=== PATIENT | male | born 1960 | race Caucasian/White ===

== ENCOUNTER 2017-07-09 14:52 | Outpatient (CLI) | payer BC ==
--- NOTE | 2017-07-09 17:50 | RAD ---
EXAM: BARIUM SWALLOW ESOPHAGRAM 07/09/17 HISTORY: Dysphagia. Patient has undergone distal esophageal dilatation. COMPARISON: None. EXPOSURE: 1.8 minutes. 113.77 mGy. FINDINGS: Initial maintenance carpenter chest radiograph demonstrates left sided transvenous pacemaker with lead position over the right atrium and right ventricle. There is atherosclerosis of the aorta. Normal cardiac silhoue tte. The pulmonary vessels and hilum are normal. Costophrenic angles are clear. No masses or consoli dation. No pneumothorax or osseous abnormality. The cervical esophagus has an overall normal course and caliber. The proximal and mid distal thoraci c esophagus also has a normal course and caliber. There is short segment moderate stenosis involving the distal thoracic esophagus just proximal to the GE junction. There is a small focal outpouching of contrast posteriorly just before the area of narrowing. 13 mm tablet does demonstrate delay in passage at the level of narrowing. Single postprocedure image demonstrates contrast in the stomach. Barium tablet is no longer seen. 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 There is a small focal outpouching of contrast just proximal to the area of stenosis. Gastroenterological consultation for endoscopy i s recommended. POS: [facility]
== END 2017-07-09 14:53 | disposition home or self-care (01) ==
LOC: RAD 14:52
PROVIDERS: ATTEND Specialist
DX: R13.10 Dysphagia, unspecified (principal); K22.2 Esophageal obstruction
CPT/HCPCS: 74220